=== PATIENT | female | born 1995 | race Caucasian/White ===

== ENCOUNTER 2021-03-03 16:58 | Emergency (ER) | payer BC ==
[2021-03-03 18:10] LABS: #Basophils 0.1 10x3/uL (0.0-0.2); #Eosinphils 0.1 10x3/uL (0.0-0.5); #Monocytes 0.6 10x3/uL (0.0-1.1); #Neutrophils 4.5 10x3/uL (1.5-8.4); %Basophils 0.6 % (0.0-2.0); %Eosinophils 1.5 % (0.0-6.0); %Lymphocytes 33.3 % (18.0-47.0); %Monocytes 7.1 % (0.0-10.0); %Neutrophils 57.2 % (40.0-75.0); Mean Corpuscular HGB CONC 35.5 g/dL (32.0-36.0); Mean Corpuscular Hemoglobin 31.6 pg (27.0-33.0); Mean Corpuscular Volume 88.8 fl (81.6-98.3); Platelet Count 227 10x3/uL (150-450); Red Blood Cell (RBC) Count 4.75 10x6/uL (3.90-5.03); White Blood Cell (WBC) Count 7.9 10x3/uL (3.5-10.5)
[2021-03-03 18:33] LABS: ALT (SGPT) 21 U/L (8-55); AST (SGOT) 27 U/L (5-34); Albumin 4.9 g/dL (3.5-5.0); Alkaline Phosphatase 73 U/L (40-110); Anion Gap 12 mmol/L (10-20); BUN (Urea Nitrogen) 14 mg/dL (7.0-18.7); Bilirubin, Total 0.6 mg/dL (0.2-1.2); Calc. Creatinine Clearance 0 mL/min (70-130); Calcium 9.5 mg/dL (7.8-10.44); Carbon Dioxide 24 mmol/L (22-29); Chloride 107 mmol/L (98-107); Globulin 3.2 g/dL (2.4-3.5); Glucose 95 mg/dL (70-105); Potassium 3.5 mmol/L (3.5-5.1); Protein, Total 8.1 g/dL (6.0-8.3); Sodium 139 mmol/L (136-145)
[2021-03-03 18:43] LABS: Free T4 (Free Thyroxine) 0.86 ng/dL (0.70-1.48); Thyroid Stimulating Hormone 8.2063 uIU/mL (0.35-4.94)
[2021-03-03] MEDS ORDERED: Lorazepam 1 MG TAB ONE (19:04)
== END 2021-03-03 19:13 | disposition home or self-care (01) ==
LOC: CSHERS 16:58
DX: G62.9 Polyneuropathy, unspecified (principal); R07.89 Other chest pain
CPT/HCPCS: 36415; 71045; 80053; 84439; 84443; 84484; 85025; 93005

== ENCOUNTER 2021-11-14 20:18 | Inpatient (IN) | payer BC, SELFPAY ==
[2021-11-14 20:55] VITALS: BMI 28.3
[2021-11-14] MEDS ORDERED: hydrALAZINE 20 MG/ML VIAL SLOW IVP PRN ×2 (21:16→23:57)
[2021-11-14] MEDS ORDERED: Lactated Ringer's 1,000 ML IV SCH (23:45)
[2021-11-14] MEDS ORDERED: NS w/ Oxytocin 30 units 500 ML IV SCH (23:45)
[2021-11-14] MEDS ORDERED: Methylergonovine 0.2 MG/ML VIAL IM PRN (23:57)
[2021-11-14] MEDS ORDERED: Promethazine HCl 25 MG/ML VIAL IM PRN (23:57)
[2021-11-14] MEDS ORDERED: Lidocaine 1% (PF) 30 ML VIAL SC PRN (23:57)
[2021-11-14] MEDS ORDERED: Diphenoxylate HCl/Atropine Tablet PO PRN (23:57)
[2021-11-14] MEDS ORDERED: Ondansetron PF 4 MG/2 ML Vial IVP PRN (23:57)
[2021-11-14] MEDS ORDERED: Carboprost 250 MCG/ML AMP IM PRN (23:57)
[2021-11-14] MEDS ORDERED: Misoprostol 200 MCG TAB PR PRN (23:57)
[2021-11-14] MEDS ORDERED: Ibuprofen 800 MG TAB PO PRN (23:57)
[2021-11-15 13:05] LABS: Hemoglobin 12.4 g/dL (12.0-15.5); Mean Corpuscular HGB CONC 33.8 g/dL (32.0-36.0); Mean Corpuscular Hemoglobin 29.3 pg (27.0-33.0); Mean Corpuscular Volume 86.8 fl (81.6-98.3); Mean Platelet Volume 13.1 fl (7.4-10.4); Platelet Count 170 10x3/uL (150-450); RBC Distribution Width 13.9 % (11.5-14.5); Red Blood Cell (RBC) Count 4.23 10x6/uL (3.90-5.03); White Blood Cell (WBC) Count 9.4 10x3/uL (3.5-10.5)
[2021-11-15 13:41] LABS: Hep B Surf Ag Non-Reactive S/CO (NonReactive); Syphilis Antibody Nonreactive (Nonreactive); Syphilis Antibody Index 0.05 S/CO (<1.00 Non-Reactive)
[2021-11-15 13:55] LABS: HBSAg Index 0.19 S/CO (0-0.99)
[2021-11-15] MEDS ORDERED: Fentanyl 2 mcg/Bup 0.1% Cadd 100 ML ONE (20:11)
[2021-11-15] MEDS ORDERED: diphenhydrAMINE 50 MG/ML VIAL IVP PRN (21:28)
[2021-11-15] MEDS ORDERED: Promethazine HCl 25 MG/ML VIAL IM PRN (21:28)
[2021-11-15] MEDS ORDERED: ePHEDrine Sulfate 50 MG/10 ML VIAL SLOW IVP PRN (21:28)
[2021-11-15] MEDS ORDERED: Acetaminophen 325 MG TAB PO PRN (21:28)
[2021-11-15] MEDS ORDERED: Ondansetron PF 4 MG/2 ML Vial IVP PRN (21:28)
[2021-11-15] MEDS ORDERED: Moisturizing Cream (Eucerin) 113 GM JAR TOP PRN (21:28)
[2021-11-15] MEDS ORDERED: Naloxone HCl 0.4 mg/ml Vial IVP PRN ×2 (21:28)
[2021-11-15] MEDS ORDERED: Lactated Ringer's 500 ML IV PRN (21:28)
[2021-11-15] MEDS ORDERED: Communication Order-Pharmacy FS SCH (21:30)
[2021-11-15] MEDS ORDERED: Fentanyl 2 mcg/Bupivacaine 0.1% Cassette 100 ML EPIDURAL SCH (21:30)
[2021-11-16] MEDS ORDERED: Boostrix 0.5 ML (Tdap) VIAL IM ONE (07:31)
[2021-11-16] MEDS ORDERED: Misoprostol 200 MCG TAB VAG PRN (07:31)
[2021-11-16] MEDS ORDERED: Milk Of Magnesia 30 ML UDCUP PO PRN (07:31)
[2021-11-16] MEDS ORDERED: Benzocaine-Menthol 82.5 ML CAN TOP PRN (07:31)
[2021-11-16] MEDS ORDERED: Methylergonovine 0.2 MG/ML VIAL IM PRN (07:31)
[2021-11-16] MEDS ORDERED: Lanolin Ointment 7 GM TUBE TOP PRN (07:31)
[2021-11-16] MEDS ORDERED: Bisacodyl 10 MG SUPP PR PRN (07:31)
[2021-11-16] MEDS ORDERED: HYDROcodone/Acetaminophen 5/325 mg Tablet PO PRN ×2 (07:31)
[2021-11-16] MEDS ORDERED: hydrALAZINE 20 MG/ML VIAL SLOW IVP PRN (07:31)
[2021-11-16] MEDS ORDERED: NS w/ Oxytocin 30 units 500 ML IV SCH (07:31)
[2021-11-16] MEDS: Docusate 100 MG CAP PO SCH (21:32)
[2021-11-17] MEDS: Ibuprofen 800 MG TAB PO SCH ×4 (00:46→17:07)
[2021-11-17 07:36] VITALS: BP 104/60; TEMP 97.5
[2021-11-17] MEDS: Ferrous Sulfate 325 MG TAB PO SCH ×2 (09:15→09:16)
[2021-11-17] MEDS: Prenatal Vitamin 1 TAB PO SCH ×2 (09:15→09:28)
[2021-11-17] MEDS: Docusate 100 MG CAP PO SCH ×2 (09:15→09:28)
== END 2021-11-17 19:15 | disposition home or self-care (01) | DRG 807 ==
LOC: CSHLD/OP 20:18 → CSHLD 22:49 → CSHPP 11-16 20:00
PROVIDERS: ADMIT Student in an Organized Health Care Education/Training Program; ATTEND Student in an Organized Health Care Education/Training Program
PROC: 10E0XZZ Delivery of Products of Conception, External Approach (ICD-10-PCS; principal; 2021-11-16)
PROC: 0HQ9XZZ Repair Perineum Skin, External Approach (ICD-10-PCS; 2021-11-16)
DX: O42.02 Full-term premature rupture of membranes, onset of labor within 24 hours of rupture (principal); Z37.0 Single live birth; Z3A.40 40 weeks gestation of pregnancy; E03.9 Hypothyroidism, unspecified; O99.284 Endocrine, nutritional and metabolic diseases complicating childbirth; Z79.890 Hormone replacement therapy; Z79.899 Other long term (current) drug therapy; O76 Abnormality in fetal heart rate and rhythm complicating labor and delivery; O48.0 Post-term pregnancy; Z91.048 Other nonmedicinal substance allergy status; O70.1 Second degree perineal laceration during delivery
CPT/HCPCS: 36415; 51702; 85027; 86780; 86850; 86900; 86901; 87340; J2590; J7120